=== PATIENT | male | born 1995 | race Caucasian/White ===

== ENCOUNTER 2017-11-29 08:57 | Emergency (ER) | payer BC, OTHER ==
[2017-11-29 09:36] VITALS: BP 106/59
--- NOTE | 2017-11-29 13:23 | UC ---
Addi French Stephanie, scribed for Tam Retana MD on 11/29/17 at 1153 . Eye Complaint HPI - HPI Summary HPI Summary: The pt is a 22 y/o M presenting to with c/o a swollen L eyelid that began 4 days ago on 11/25/17. Symptoms include crusted eye lid. Pt denies rhinnorea and sore throat. Pt has attempted to treat with warm compresses over the eye. - History of Current Complaint Chief Complaint: UCEye Stated Complaint: EYE ISSUE Time Seen by Provider: 11/29/17 11:10 Hx Obtained From: Patient Onset/Duration: Lasting Days - 4, Still Present Timing: Constant Pain Intensity: 0 Pain Scale Used: 0-10 Numeric Location of Injury: Eye Lid (upper) - L Aggravating Factor(s): Nothing Alleviating Factor(s): Nothing Associated Signs And Symptoms: Positive: Drainage (Clear). Negative: Fever - Allergies/Home Medications Allergies/Adverse Reactions: Allergies Allergy/AdvReac Type Severity Reaction Status Date / Time No Known Allergies Allergy Verified 11/29/17 09:32 PMH/Surg Hx/FS Hx/Imm Hx Previously Healthy: Yes - Surgical History Surgical History: None - Family History Known Family History: Positive: Unknown - Pt denies family history when asked. - Social History Occupation: Employed Part-time Lives: With Family Alcohol Use: Weekly Substance Use Type: None Smoking Status (MU): Never Smoked Tobacco Review of Systems Constitutional: Negative Skin: Negative Eyes: Drainage - L, Eye Redness - L eyelid ENT: Negative Respiratory: Negative Cardiovascular: Negative Gastrointestinal: Negative Genitourinary: Negative Motor: Negative Neurovascular: Negative Musculoskeletal: Negative Neurological: Negative Psychological: Negative All Other Systems Reviewed And Are Negative: Yes Physical Exam Triage Information Reviewed: Yes Vital Signs: Initial Vital Signs Temp 98 F 11/29/17 09:33 Pulse 87 11/29/17 09:33 Resp 16 11/29/17 09:33 BP 106/59 11/29/17 09:33 Pulse Ox 100 11/29/17 09:33 Vital Signs Reviewed: Yes - Additional Comments General: well-appearing, no pain distress Skin: warm, color reflects adequate perfusion, dry Head: normal Eyes: EOMI, TREVON, L upper eyelid swollen with erythema. Tender to palpation, crusting on eyelashes. Eye looks nml. ENT: Minimal rhinorrhea. Neck: supple, nontender Respiratory: CTA, breath sounds present Cardiovascular: RRR Abdomen: soft, nontender Bowel: present Musculoskeletal: normal, strength/ROM intact Neurological: normal, sensory/motor intact, A&O x3 Psychological: affect/mood appropriate Eye Complaint Course/Dx - Course Course Of Treatment: Medications reviewed. - Differential Dx/Diagnosis Provider Diagnoses: STYE RIGHT UPPER EYELID Discharge - Discharge Plan Condition: Stable Disposition: HOME Prescriptions: Amoxicillin/Clavulanate TAB* [Augmentin TAB 875*] 875 mg PO BID #20 tab Tobramycin 0.3% OPHTH.ROBBIN* 1 drop LEFT EYE Q4H #1 btl Patient Education Materials: Stye (ED) Referrals: [facility] [Provider Group] ERICKA ESTRADA MD [Provider Group] [facility] [Outside] No Primary Care Phys,[facility]OP[facility] [Primary Care Provider] - Additional Instructions: FOLLOW UP WITH YOUR DOCTOR. GET RECHECKED FOR ANY WORSENING OF YOUR CONDITION OR QUESTIONS OR CONCERNS. The documentation as recorded by the Addi pierre Stephanie accurately reflects the service I personally performed and the decisions made by me, Tam Retana MD.
== END 2017-11-29 11:26 | disposition home or self-care (01) ==
LOC: UCEAST 08:57
DX: H00.021 Hordeolum internum right upper eyelid (principal)
CPT/HCPCS: 99202; G0463